=== PATIENT | female | born 1925 | race Caucasian/White ===

== ENCOUNTER 2016-07-21 16:33 | Inpatient (IN) | payer OTHER ==
[~2016-07-21] VITALS: Ht 147.3 cm; Wt 50.0 kg
[~2016-07-21 16:33] MED LIST: ATIVAN0.5 M1 PO; CALCIUM500 MG PO; COUMADIN3 MG PO; COUMADIN4 MG PO; DIG125 PO; KLOR-CON20 MEQ PO; LASIX40 MG PO; LISINOPRIL2.5 MG PO; METOPROLOL SUCC25 M1 PO; ZOCOR20 MG PO
[2016-07-21 17:49] LABS: BASOPHIL % 0.7 % (0-2); PLATELET COUNT 155 x10^3mcL (130-400)
[2016-07-21 17:50] LABS: RED CELL DISTRIBUTION WIDTH 16.3 % (11.5-14.5)
[2016-07-21 17:58] LABS: CALCIUM 8.9 mg/dL (8.5-10.1); CARBON DIOXIDE 29.4 mmol/L (21-32); CHLORIDE SERUM 101 mmol/L (98-107); GLUCOSE SERUM 114 mg/dL (74-106); POTASSIUM SERUM 3.9 mmol/L (3.5-5.1); SODIUM SERUM 138 mmol/L (136-145)
[2016-07-21 18:13] LABS: ALBUMIN 3.4 g/dL (3.4-5.0); ALKALINE PHOSPHATASE 91 U/L (46-116); ALT/SGPT 20 U/L (14-59); AMYLASE 68 U/L (25-115); AST/SGOT 33 U/L (15-37); BILIRUBIN TOTAL 0.96 mg/dL (0.20-1.00); HDL CHOLESTEROL 43 mg/dL (40-60); LIPASE 136 IU/L (73-393); MAGNESIUM 1.7 mg/dL (1.8-2.4); T4(THYROXINE) 8.1 ug/dL (4.7-13.3); TOTAL PROTEIN, SERUM 6.5 g/dL (6.4-8.2)
[2016-07-21 18:14] LABS: CHOLESTEROL 93 mg/dL (<200)
[2016-07-21 19:11] LABS: UA SPECIFIC GRAVITY 1.015 (1.005-1.035); microscopic required? YES; urine erythrocyte TRACE (NEGATIVE)
[2016-07-21 19:19] LABS: AMPHETAMINE QUAL UR NONE DETECTED (NEG <=1000)
[2016-07-21 19:33] LABS: T3 TOTAL 1.37 ng/mL
[2016-07-21] MEDS ORDERED: CALCIUM CARBON650 MG PO (19:34)
[2016-07-21] MEDS ORDERED: METOPROLOL SUCC50 M2 PO (19:35)
[2016-07-21 19:44] LABS: CHOLESTEROL/HDL RATIO 2.1
[2016-07-21 19:49] VITALS: BP 121/85
[2016-07-21 20:18] LABS: FREE THYROXINE INDEX 3.4 ug/dL (1.4-4.5)
[2016-07-21 20:55] VITALS: BP 121/85
[2016-07-21 21:16] LABS: FREE T4 1.1 ng/dL (0.76-1.46)
[2016-07-21 21:58] VITALS: BP 156/105
[2016-07-22 05:19] VITALS: BP 140/70
[2016-07-22 06:00] LABS: BASOPHIL % 0.6 % (0-2); PLATELET COUNT 132 x10^3mcL (130-400)
[2016-07-22 06:16] LABS: CALCIUM 8.9 mg/dL (8.5-10.1); CARBON DIOXIDE 33.8 mmol/L (21-32); CHLORIDE SERUM 102 mmol/L (98-107); CREATININE SERUM 0.9 mg/dL (0.6-1.0); GLUCOSE SERUM 93 mg/dL (74-106); MAGNESIUM 1.5 mg/dL (1.8-2.4); PHOSPHOROUS 3.8 mg/dL (2.5-4.9); POTASSIUM SERUM 3.7 mmol/L (3.5-5.1); SODIUM SERUM 142 mmol/L (136-145)
[2016-07-22 10:01] VITALS: BP 140/77
[2016-07-22 14:31] VITALS: BP 129/78
[2016-07-22 21:57] VITALS: BP 141/74
[2016-07-23 05:27] VITALS: BP 170/75
[2016-07-23 05:49] VITALS: BP 135/84
[2016-07-23 06:27] LABS: BASOPHIL % 0.4 % (0-2); PLATELET COUNT 143 x10^3mcL (130-400)
[2016-07-23 06:43] LABS: RED CELL DISTRIBUTION WIDTH 15.9 % (11.5-14.5)
[2016-07-23 07:00] LABS: CALCIUM 8.6 mg/dL (8.5-10.1); CARBON DIOXIDE 31.3 mmol/L (21-32); CHLORIDE SERUM 100 mmol/L (98-107); CREATININE SERUM 0.8 mg/dL (0.6-1.0); GLUCOSE SERUM 104 mg/dL (74-106); MAGNESIUM 2.1 mg/dL (1.8-2.4); PHOSPHOROUS 3.1 mg/dL (2.5-4.9); POTASSIUM SERUM 3.3 mmol/L (3.5-5.1); SODIUM SERUM 139 mmol/L (136-145)
[2016-07-23 10:00] VITALS: BP 151/89
[2016-07-23] MEDS ORDERED: LOP50 PO (15:09)
[2016-07-23] MEDS ORDERED: METOPROLOL TART25 M1 PO (15:09)
[2016-07-23] MEDS ORDERED: ZES5 PO (15:10)
[2016-07-23] MEDS ORDERED: ALD25 PO (15:10)
[2016-07-23 15:15] VITALS: BP 114/55
[2016-07-23] MEDS ORDERED: FUROSEMIDE40 MG PO (15:18)
[2016-07-23] MEDS ORDERED: LASIX20 MG PO (15:19)
[2016-07-23 16:04] VITALS: BP 114/55
== END 2016-07-23 17:25 | disposition home health service (06) | DRG 293 ==
LOC: ED 16:33 → DU 18:44
PROVIDERS: Emergency Medicine; Family Medicine; ADMIT Family Medicine
DX: I11.0 Hypertensive heart disease with heart failure (principal); I50.43 Acute on chronic combined systolic (congestive) and diastolic (congestive) heart failure; I48.91 Unspecified atrial fibrillation; I08.3 Combined rheumatic disorders of mitral, aortic and tricuspid valves; E83.42 Hypomagnesemia; R73.03 Prediabetes; F41.9 Anxiety disorder, unspecified; Z95.2 Presence of prosthetic heart valve; Z79.01 Long term (current) use of anticoagulants; Z96.651 Presence of right artificial knee joint; Z68.23 Body mass index [BMI] 23.0-23.9, adult
CPT/HCPCS: 80307; 82962; 83880; 84439; 97110-GP; J1940; J7620; Q0092